=== PATIENT | female | born 2000 | race Caucasian/White ===

== ENCOUNTER 2020-10-02 00:52 | Emergency (ER) | payer BC ==
[2020-10-02] MEDS ORDERED: methylPREDNISolone Sod Succ/PF 125 MG/2 ML VIAL ONE (01:09)
[2020-10-02] MEDS ORDERED: Famotidine 20 MG TAB ONE (01:09)
[2020-10-02] MEDS ORDERED: hydrOXYzine 25 MG TAB ONE (01:09)
[2020-10-02] MEDS ORDERED: Ondansetron ODT 4 MG TAB ONE (01:09)
== END 2020-10-02 01:50 | disposition home or self-care (01) ==
LOC: BURERS 00:52
DX: T78.1XXA Other adverse food reactions, not elsewhere classified, initial encounter (principal); R21 Rash and other nonspecific skin eruption; J45.909 Unspecified asthma, uncomplicated; G40.909 Epilepsy, unspecified, not intractable, without status epilepticus; F17.290 Nicotine dependence, other tobacco product, uncomplicated
CPT/HCPCS: 96372; 99283; J2930; Q0162